=== PATIENT | male | born 1980 | race Caucasian/White ===

== ENCOUNTER 2017-09-24 12:29 | Emergency (ER) | payer SELFPAY ==
[~2017-09-24] VITALS: Ht 165.1 cm; Wt 104.5 kg
[2017-09-24 12:37] VITALS: Ht 165.1 cm; Wt 104.5 kg
[2017-09-24] MEDS ORDERED: SAVAYSA60 MG PO (12:38)
[2017-09-24] MEDS ORDERED: BETAPACE 120 M120 MG PO (12:38)
[2017-09-24] MEDS ORDERED: PRINIVIL20 MG PO (12:38)
[2017-09-24] MEDS ORDERED: CARDIZEM120 MG PO (12:38)
[2017-09-24] MEDS ORDERED: VENTOLIN HFA18 GM INH (12:39)
[2017-09-24] MEDS ORDERED: VITAMIN D31000 UNI2 PO (12:39)
[2017-09-24] MEDS ORDERED: PRAVACHOL20 MG PO (12:39)
[2017-09-24] MEDS ORDERED: ZITHROMAX500 MG PO (13:37)
[2017-09-24 13:51] VITALS: BP 136/85
== END 2017-09-24 13:52 | disposition home or self-care (01) ==
LOC: D.ER 12:29
DX: J18.9 Pneumonia, unspecified organism (principal); R06.2 Wheezing; R06.02 Shortness of breath

== ENCOUNTER 2017-09-29 12:42 | Emergency (ER) | payer SELFPAY ==
[~2017-09-29] VITALS: Ht 165.1 cm; Wt 104.5 kg
[~2017-09-29 12:42] MED LIST: BETAPACE 120 M120 MG PO; CARDIZEM120 MG PO; PRAVACHOL20 MG PO; PRINIVIL20 MG PO; SAVAYSA60 MG PO; VENTOLIN HFA18 GM INH; VITAMIN D31000 UNI2 PO; ZITHROMAX500 MG PO
[2017-09-29 13:11] VITALS: Ht 165.1 cm; Wt 104.5 kg
[2017-09-29 14:00] LABS: BASOPHILS 0.4 % (0-2); EOSINOPHILS 9.1 % (0-7); HEMATOCRIT 45.8 % (42.0-54.0); HEMOGLOBIN 16.7 g/dL (13.5-17.5); IMMATURE GRANULOCYTES 0.4 % (0-5); LYMPHOCYTES 40.8 % (15-50); MCH 31.6 pg (26.0-34.0); MCHC 36.5 g/dL (31.0-37.0); MCV 86.7 fL (80.0-100.0); MONOCYTES 8.8 % (2-11); NEUTROPHILS 40.5 % (40-80); PLATELET COUNT 243 10x3/uL (130-400); RBC 5.28 10x6/uL (4.20-6.10); RDW 11.9 % (11.5-14.5); WBC 5.3 10x3/uL (4.8-10.8)
[2017-09-29 14:24] LABS: APTT 24.3 SECONDS (22.8-39.4); INR 0.94 (0.85-1.17); PROTIME 12.2 SECONDS (11.6-15.0)
[2017-09-29 14:25] LABS: D-DIMER-QUANTITATIVE 0.46 ug/mLFEU (0.20-0.54)
[2017-09-29 14:32] LABS: ALKALINE PHOSPHATASE 83 U/L (46-116); ALT (SGPT) 108 U/L (10-68); BILIRUBIN - TOTAL 1.09 mg/dL (0.2-1.3); CALC OSMOLALITY 278 mosm/kg (275-300); CARBON DIOXIDE 24.5 mmol/L (21.0-32.0); CHLORIDE - SERUM 97 mmol/L (98-107); CKMB 1.5 U/L (0.0-3.6); CREATINE KINASE 225 UL (21-232); CREATININE - SERUM 1.4 mg/dL (0.6-1.3); GLUCOSE 331 mg/dL (74-106); POTASSIUM - SERUM 4.3 mmol/L (3.5-5.1); PROTEIN - SERUM 7.6 g/dL (6.4-8.2); SODIUM 132 mmol/L (136-145); UREA NITROGEN 16 mg/dL (7-18); eGFR NON AFRICAN AMERICAN 60 mL/min (90-120)
[2017-09-29 14:56] LABS: PRO BNP 7 pg/mL (0-125); TROPONIN-I < 0.017 ng/mL (0.000-0.060)
[2017-09-29] MEDS ORDERED: FORTAMET500 MG/BOT PO (16:24)
[2017-09-29] MEDS ORDERED: LANTUS SOL100 UNIT/1 SC (16:24)
[2017-09-29] MEDS ORDERED: QVAR8.7 G1 INH (16:28)
[2017-09-29 18:10] VITALS: BP 144/90
== END 2017-09-29 18:10 | disposition home or self-care (01) ==
LOC: D.ER 12:42
PROVIDERS: Family Medicine
DX: J45.901 Unspecified asthma with (acute) exacerbation (principal); R73.9 Hyperglycemia, unspecified